=== PATIENT | male | born 1950 | race Caucasian/White ===

== ENCOUNTER → 2018-12-23 | Outpatient (CLI) | payer MEDICARE, OTHER ==
[~2018-12-23] MED LIST: ASPIRIN 81M81 MG/TA2 PO; DILANTIN 100MG100 MG PO; IMDUR 30MG30 MG/TAB PO; IMITREX100 MG PO; LIPITOR20 MG PO; NITROSTAT0.4 MG/TAB SL; PHENOBARBITAL97.2 MG PO; PHENYTEK200 MG PO; PHENYTEK300 MG PO
== END ==
LOC: COL.CARD 09:31
DX: R56.9 Unspecified convulsions (principal); R40.4 Transient alteration of awareness